=== PATIENT | female | born 2005 | race Caucasian/White ===

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

== ENCOUNTER 2024-01-12 16:38 | Outpatient (CLI) | payer OTHER, SELFPAY | END 2024-01-12 23:59 | LOC: LAB.DROPOF 16:39 | PROVIDERS: PCP Obstetrics & Gynecology; Visit Provider Obstetrics & Gynecology | DX: O26.893 Other specified pregnancy related conditions, third trimester (principal); Z3A.36 36 weeks gestation of pregnancy | CPT/HCPCS: 86403 ==

== ENCOUNTER 2024-01-30 12:29 | Inpatient (IN) | payer OTHER, SELFPAY ==
[2024-01-30 12:45] VITALS: BMI 31.9
[2024-01-30 12:50] VITALS: BP 116/59; PULSE 79; RESP 18; TEMP 36.8; O2SAT 98; BMI 31.9
[2024-01-30 14:30] LABS: Basophils # 0.1 K/mm3 (0-0.2); Basophils % 0.6 % (0.1-2.0); Eosinophils % 0.3 % (0.1-12.0); Hematocrit 36.1 % (37.0-47.0); Hemoglobin 11.6 g/dL (12.2-16.2); Lymphocytes # 1.7 K/mm3 (0.7-4.5); Lymphocytes % 14.6 % (10-50); Mean Corpuscular HGB Conc 32.2 g/dL (31.8-35.4); Mean Corpuscular Hemoglobin 29.9 pg (27.0-31.2); Mean Corpuscular Volume 92.9 fl (81-99); Mean Platelet Volume 8.1 fl (7.4-10.4); Monocytes # 0.8 K/mm3 (0.1-1.0); Monocytes % 6.8 % (1.7-9.3); Neutrophils # 9.1 K/mm3 (1.8-7.8); Neutrophils % 77.6 % (37.0-80.0); Platelet Count 359 K/mm3 (142-424); Red Blood Count 3.88 M/mm3 (4.20-5.40); Red Cell Distribution Width 14.3 % (11.5-17.5); White Blood Count 11.7 K/mm3 (4.5-13.0)
[2024-01-30] MEDS: miSOPROStol 100MCG TABLET 50 MCG PO ×2 (14:32→20:45)
[2024-01-30 15:34] LABS: Microscopic, Urine URINE MICROSCOPIC (MICROSCOPIC)
[2024-01-30 15:43] LABS: Appearance,Urine CLEAR (Clear); Blood, Urine Negative (Negative); Color,Urine DARK YELLOW (Yellow); Glucose,Urine (UA) TRACE (Negative); Ketones,Urine TRACE (Negative); Leukocyte Esterase,Urine 2+ (Negative); Nitrate,Urine Negative (Negative); PH,Urine 6.5 (5.0-8.5); Protein,Urine 1+ (Negative); Specific Gravity, Urine 1.025 (1.005-1.030)
[2024-01-30 15:50] LABS: Bilirubin,Urine 1+ (Negative)
[2024-01-30 15:56] LABS: Benzodiazepines Screen,Urine Negative ng/ml (<200)
[2024-01-30 15:57] LABS: Amphetamine/Metha Screen,Urine Negative ng/ml (<1000); Barbiturates Screen,Urine Negative ng/ml (<200)
[2024-01-30 15:58] LABS: Cannabinoid Screen,Urine Negative ng/ml (<50); Cocaine Screen,Urine Negative ng/ml (<300)
[2024-01-30 15:59] LABS: Methadone Screen,Urine Negative ng/ml (<300)
[2024-01-30 16:00] LABS: Opiate Screen,Urine Negative ng/ml (<300); Phencyclidine Screen,Urine Negative ng/ml (<25)
[2024-01-30 16:45] LABS: Bacteria,Urine 3+ /lpf; RBC,Urine Occasional #/hpf (0-3)
[2024-01-30 19:50] VITALS: BP 116/74; PULSE 97; RESP 17; TEMP 37.2; O2SAT 97
[2024-01-31] MEDS: miSOPROStol 100MCG TABLET 50 MCG PO (02:43)
[2024-01-31] MEDS: SODIUM CHLORIDE 0.9% 25ML BAG 25 ML IV (04:26)
[2024-01-31] MEDS: PROMETHAZINE HCL 25MG/ML 1ML VIAL 12.5 MG IV (04:26)
[2024-01-31] MEDS: LACTATED RINGERS 1000ML 1,000 ML 250 ML IV (08:00)
--- NOTE | 2024-01-31 08:46 | P.HP_ITS ---
OB - H&P: HPI Antepartum History of Present Illness Chief complaint: Elective induction of labor History of present illness: Ms Nancy García is a 18 yo at 39w0d who presents to [facility] Labor and Delivery for scheduled elective induction of labor. She has had good care. Baby is active. GBS negative. History of Present Criteria for establishing EDC:: LMP confirmed by 2nd trimester US care: good care Ultrasounds: normal mid trimester US Obstetrical complications: none Medical complications: none Labs Blood type: A (+) positive Rubella: immune RPR/VDRL: nonreactive GBS status: negative HBsAG: negative [facility] Disclaimer: The information contained in this section may have been updated after the patient was seen, as this information can be updated by other users. Medical History (Updated 01/31/24 @ 08:50 by Beth Bazan DO) Encounter for elective induction of labor with 39 completed weeks gestation Heartburn during Vaginal bleeding in History of maternal chlamydia infection, currently Surgical History No significant past surgical history Family History Other No significant family history Social History Smoking Status: Never smoker alcohol intake: never substance use type: denies use current occupational status: employed Travel in the last 8 weeks: None Review of Systems Review of Systems Review of systems:: pertinent systems reviewed and negative unless documented below Meds Home Medications and Allergies Home Medications Medication Instructions Recorded Confirmed Type vits no.126-ferrous fum 1 tab PO DAILY 09/08/23 01/30/24 History 28 mg iron-folic acid 800 mcg tablet (Classic ) New Prescriptions to Start Prescriptions: Allergies Allergy/AdvReac Type Severity Reaction Status Date / Time No Known Allergies Allergy Verified 01/26/24 09:37 OB - H&P: Exam Physical Exam Vital signs: Temp Pulse Resp BP Pulse Ox O2 Del Method 98.9 F 97 H 17 116/74 97 Room Air 01/30/24 19:50 01/30/24 19:50 01/30/24 19:50 01/30/24 19:50 01/30/24 19:50 01/30/24 12:50 Constitutional no acute distress and cooperative Routine HEENT Exam Head: Present normocephalic and atraumatic Eye: Absent conjunctivae pink ENT: Present mucous membranes moist Routine Neck Exam Present full ROM Routine Respiratory Exam Present CTA bilaterally and normal respiratory effort Routine Cardiovascular Exam Present RRR Routine Abdominal Exam Present soft (Gravid); Absent tenderness Routine Rectal Exam Patient deferred: visual exam Routine Exam External: Present normal urethra appearance; Absent erythema, tenderness, lesions or lacerations Routine Extremities Exam Absent edema or calf tenderness Routine Neurological Exam Present alert, moving all extremities and normal speech Routine Psychiatric Exam Present normal affect and cooperative Detailed Labor and Delivery Exam Dilation (cm): 3 Effacement (%): 70 Cervix position: mid station: -2 Consistency: soft Membranes: artificially ruptured (0752) Amniotic fluid: clear Baseline heart rate: 130 monitor accelerations: Present monitor decelerations: None terminal operations supervisor variability: Moderate (11-25) Contraction frequency (min): 3 Tachysystole: No OB - Results Labs Labs: Short CBC 01/30/24 Range/Units 14:00 WBC 11.7 (4.5-13.0) K/mm3 Hgb 11.6 L (12.2-16.2) g/dL Hct 36.1 L (37.0-47.0) % Plt Count 359 (142-424) K/mm3 Urine 01/30/24 Range/Units 12:45 Urine Color Dark yellow (Yellow) Urine Appearance Clear (Clear) Urine pH 6.5 (5.0-8.5) Ur Specific [place] 1.025 (1.005-1.030) Urine Protein 1+ (Negative) Urine Glucose (UA) Trace (Negative) OB - A/P Antepartum (1) with 39 completed weeks gestation: Status: Acute (2) Encounter for elective induction of labor: Status: Acute (3) Heartburn during : Status: Acute (4) History of maternal chlamydia infection, currently : Status: Acute Additional Plan Planning to breastfeed?: Yes Plan: induction Additional Information:: Admit to [facility] L&D for scheduled elective induction of labor Induction of labor with Cytotec followed by Pitocin GBS negative Close monitoring
--- NOTE | 2024-01-31 08:48 | P.PNANES_ITS ---
[facility] Disclaimer: The information contained in this section may have been updated after the patient was seen, as this information can be updated by other users. Medical History Heartburn during Vaginal bleeding in s/p intercourse History of maternal chlamydia infection, currently Surgical History No significant past surgical history Family History Other No significant family history Social History Smoking Status: Never smoker alcohol intake: never substance use type: denies use current occupational status: employed Travel in the last 8 weeks: None [facility] Anesthesia Checklist Patient Identification Patient Identification: Arm Band and Verbal (Name & ) Structural Data Admitted From: Inpatient ([id number]) Planned Operative Procedure/s: Labor epidural Consent for Planned Operative Procedure(s) Verified: Yes Verified Documents: Surgical Consent and History and Physical NPO Status Verified Time NPO: 08:00 Chart Verification Results Verified: CBC and BMP Additional verifications Patient : Yes (39 wk IUP for labor induction) Anesthesia Reactions: No Cardiovascular Assessment Heart Sounds: S1 & S2 Pulse Rhythm: Irregular Peripheral Edema: No Airway Assessment Mallampati Score:: Class II C-Spine Mobility Assessed: Yes (FROM) TMJ Mobility Assessed: Yes Dentition: Good Dentition (Nothing loose per pt.) Neurological Assessment Level of Consciousness: Awake, Alert, Appropriate and Follows Commands Hx Seizures: No Numbness or tingling in extremities: No Anesthesia Plan Anesthesia Risk discussed: Yes Anesthesia Plan: Verified ASA Class: II Anesthesia Type: Epidural
--- NOTE | 2024-01-31 08:49 | P.PCN_ITS ---
[facility] Procedure Note Date: 01/31/24 Time: 08:25 Procedure Note:: Labor Epidural Position: Sitting Prep:Betadine x3 Level: L3-4 Needle: Touhy 19g VISHNU: to air @ 6cm Heme: NEGATIVE; CSF: NEGATIVE; Parasthesia: NEGATIVE Test Dose: NEGATIVE w/5mL Lido 1.5% w/epi 1:200,000 Catheter: secured 16cm @ skin Bolus: Ropivicaine 0.2% x 10mL + Fentanyl 50mcg SUPERVISOR TELEVISION CHASSIS REPAIR: Ropivicaine 0.2% w/Fentanyl 2mcg/mL @ 12 mL/hr Tolerated well
[2024-01-31] MEDS: OXYTOCIN/RINGERS LACTATE 30 UNITS/500 ML BAG IV (10:25)
[2024-01-31] MEDS: DEXTROSE 5%-LACTATED RINGERS 1,000 ML 125 ML IV (10:26)
[2024-01-31] MEDS: OXYTOCIN/RINGERS LACTATE 30 UNITS/500 ML BAG 40 UNITS IV (12:42)
--- NOTE | 2024-01-31 13:00 | EXP.DN ---
Delivery Note Delivery Date:: 01/31/24 Delivery Time:: 12:41 Anesthesia Type: Epidural Was labor medically induced?: No Induction method: per misoprostol protocol Gestational age (weeks): 39 delivered prior to 39 weeks?: No Gender: Male at 1 minute: 8 at 5 minutes: 9 LAC or MLE?: LAC Delivery Procedure:: Mom complete with epidural. Pushed for approximately 10 minutes. Head delivered spontaneously over intact perineum in ANNALEE position. Body cord delivered through. Anterior shoulder delivered with gentle downward pressure. Posterior shoulder and remainder of body delivered spontaneously. Baby placed on maternal abdomen, mouth and nares bulb suctioned, warmed/dried and stimulated. Delayed cord clamping was performed for 60 seconds. Cord was clamped and cut. Cord blood was obtained. Placenta delivered spontaneously and intact. Bilateral vaginal wall lacerations and left labial laceration repaired with 3-0 Vicryl. Hemostasis noted. Mom and baby were skin to skin and doing well after delivery. Live male baby (baby's name is Rahul) APGARs 8 (1 min), 9 (5 min) EBL 350 mL Laceration:: vaginal Placental Delivery Description: Spontaneous
[2024-01-31] MEDS: BENZOCAINE-MENTHOL SPRAY 56GM CAN TP (14:04)
[2024-01-31] MEDS: WITCH HAZEL 40 PADS/BOX 1 EACH TP (14:05)
[2024-01-31] MEDS: IBUPROFEN 400 MG TABLET 800 MG PO (14:05)
[2024-01-31] MEDS: ACETAMINOPHEN 500MG TAB 1000 MG PO (14:06)
[2024-01-31 19:50] VITALS: BP 118/72; PULSE 58; RESP 16; TEMP 36.9
[2024-02-01 04:00] VITALS: BP 119/66; PULSE 76; RESP 17; TEMP 36.8; O2SAT 98
[2024-02-01 07:04] LABS: Basophils % 0.3 % (0.1-2.0); Eosinophils # 0.1 K/mm3 (0.0-0.4); Eosinophils % 0.6 % (0.1-12.0); Hematocrit 32.9 % (37.0-47.0); Hemoglobin 10.7 g/dL (12.2-16.2); Lymphocytes # 2.5 K/mm3 (0.7-4.5); Lymphocytes % 15.4 % (10-50); Mean Corpuscular HGB Conc 32.5 g/dL (31.8-35.4); Mean Corpuscular Volume 92.4 fl (81-99); Mean Platelet Volume 8.4 fl (7.4-10.4); Monocytes # 0.9 K/mm3 (0.1-1.0); Monocytes % 5.5 % (1.7-9.3); Neutrophils # 12.5 K/mm3 (1.8-7.8); Neutrophils % 78.2 % (37.0-80.0); Platelet Count 375 K/mm3 (142-424); Red Blood Count 3.56 M/mm3 (4.20-5.40); Red Cell Distribution Width 14.2 % (11.5-17.5)
[2024-02-01 07:09] LABS: MANUAL DIFFERENTIAL MANUAL DIFFERENTIAL (MANUAL DIFF)
[2024-02-01 07:28] VITALS: BP 135/72; PULSE 79; RESP 18; TEMP 36.9; O2SAT 98
[2024-02-01] MEDS: SENNA 8.6MG TABLET 8.59999999999999964 MG PO (07:32)
[2024-02-01] MEDS: ACETAMINOPHEN 500MG TAB 1000 MG PO ×2 (07:32→22:22)
[2024-02-01] MEDS: IBUPROFEN 400 MG TABLET 800 MG PO ×2 (07:32→22:22)
[2024-02-01 08:18] LABS: HIV Screen 4th Generation wRfx Non Reactive (Non Reactive)
[2024-02-01 08:24] LABS: Lymphocytes % 16 % (10-50); Monocytes % 2 % (2-9); Neutrophils % 82 % (42-76); Total Cells Counted 100
[2024-02-01 08:25] LABS: Platelet Estimate Normal; RBC Morphology Normal
[2024-02-01 09:20] LABS: Hepatitis B Surface Antigen Negative (Negative)
--- NOTE | 2024-02-01 10:00 | P.PN_ITS ---
Subjective *Date: 02/01/24 *Time: 10:00 Interval history: She is 1 day post from a vaginal delivery. She is doing very well. Her lochia is normal. She is bottlefeeding. She denies any depression. Blood counts are normal. Medical Exam Vital signs and Labs for Last 24 Hours: Vital Signs Temp Pulse Pulse Resp BP Pulse Ox O2 Del Method 02/01/24 07:28 98.4 F 79 18 135/72 98 Room Air 02/01/24 04:00 98.3 F 76 17 119/66 98 Room Air 01/31/24 19:50 98.4 F 58 L 16 118/72 Laboratory Results - last 24 hr 01/30/24 14:00: Hep Bs Antigen Negative, HIV 1&2 Ag/Ab, 4th Gen Non reactive 02/01/24 06:20: WBC 16.0 H D, RBC 3.56 L, Hgb 10.7 L, Hct 32.9 L, MCV 92.4, MCH 30.0, MCHC 32.5, RDW 14.2, Plt Count 375, MPV 8.4, Neut % (Auto) 78.2, Lymph % (Auto) 15.4, [place] % (Auto) 5.5, Eos % (Auto) 0.6, Baso % (Auto) 0.3, Neut # (Auto) 12.5 H, Lymph # (Auto) 2.5, [place] # (Auto) 0.9, Eos # (Auto) 0.1, Baso # (Auto) 0.0, Total Counted 100, Neutrophils % (Manual) 82 H, Lymphocytes % (Manual) 16, Monocytes % (Manual) 2, Platelet Estimate Normal, RBC Morphology Normal I & O for Labs for Last 24 Hours: Intake & Output 01/29/24 01/30/24 01/31/24 02/01/24 11:59 11:59 11:59 11:59 Weight 198 lb Microbiology Reports for the Last 24 Hours: Microbiology 01/30/24 12:45 Urine,Clean Catch Urine Culture - Final Head: Present normocephalic ENT: Present normal exam Neck: Present normal inspection Respiratory: Present normal respiratory effort; Absent accessory muscle use Rectal (female): Present deferred (female): Present deferred Skin: Present intact Assessment and Plan *Assessment and plan (1) Normal delivery at term: Status: Acute Category: Medical Code(s): O80 - Encounter for full-term uncomplicated delivery Plan She is doing very well today. She is 24 hours postdelivery. We will send her home tomorrow.
[2024-02-01 13:09] LABS: Rapid Plasma Reagin Ab Titer Non Reactive titer (NonRea<1:1)
[2024-02-01 15:56] LABS: Hepatitis C Antibody Non Reactive
[2024-02-01] MEDS: WITCH HAZEL 40 PADS/BOX 1 EACH TP (17:58)
[2024-02-01] MEDS: BENZOCAINE-MENTHOL SPRAY 56GM CAN TP (17:59)
--- NOTE | 2024-02-02 11:07 | EXP.DC.SUM ---
General Admission date:: 01/30/24 Discharge date: 02/02/24 HPI HPI HPI: Chief complaint: Elective induction of labor History of present illness: Ms Nancy García is a 18 yo at 39w0d who presents to [facility] Labor and Delivery for scheduled elective induction of labor. She has had good care. Baby is active. GBS negative. History of Present Criteria for establishing EDC:: LMP confirmed by 2nd trimester US care: good care Ultrasounds: normal mid trimester US Obstetrical complications: none Medical complications: none Labs Blood type: A (+) positive Rubella: immune RPR/VDRL: nonreactive GBS status: negative HBsAG: negative Hospital Course Hospital Course Hospital Course: Nancy García is a 18-year-old G1, P1 day #1 from a normal spontaneous vaginal delivery with a first-degree laceration. She had a male infant that weighed 6 pounds 11 ounces with a length of 18-1/2 inches on 01/31/2024 at 1241. The Apgars were 8 and 9. Her EBL was 350. She is bottlefeeding. She denies any complications. She was rubella immune and GBS negative. Rh was positive. Patient reports she is ambulating, voiding, and tolerating p.o. without difficulty or dysuria. She desires discharge home. Routine discharge instructions to include counseling on blues and depression were reviewed with the patient in detail and she voiced understanding. The patient will be scheduled to follow-up with Dr. Bazan in 1 to 2 weeks for routine visit Exam Data for Last 24 hours Vital signs and Labs for Last 24 Hours: Temp Pulse Resp BP Pulse Ox O2 Del Method 98.4 F 79 18 135/72 98 Room Air 02/01/24 07:28 02/01/24 07:28 02/01/24 07:28 02/01/24 07:28 02/01/24 07:28 02/01/24 07:28 Laboratory Results - last 24 hr 01/30/24 14:00: RPR Titer Non reactive, Hepatitis C Antibody Non reactive I & O for Last 24 hours: Intake & Output 01/30/24 01/31/24 02/01/24 02/02/24 23:59 23:59 23:59 23:59 Weight 198 lb Microbiology Reports for the Last 24 Hours: Microbiology 01/30/24 12:45 Urine,Clean Catch Urine Culture - Final Narrative: General: patient is alert oriented in no acute distress and responds appropriately to questions. Appears to be in minimal pain. Sitting up in the chair and doing well HEENT: NCAT, EOMI, moist mucous membranes, neck supple with full ROM Cardiovascular: RRR +S1/S2, no murmurs or rubs Pulmonary: Clear to auscultation bilaterally, nonlabored breathing, symmetric chest rise Abdominal: Fundus below the umbilicus, firm, and tenderness appropriate for the period. Extremities: trace edema, no tenderness or cyanosis noted Skin: Normal turgor, intact, warm. Negative for erythema, pallor, petechia, or lesions Neurologic: Negative for sensory or motor deficit Psychiatric: Normal affect, normal thought process, good judgment and insight, no depression or anxious mood appreciated. Results Data Completed and Pending Labs on day of discharge: Labs from last 24 hours 01/30/24 14:00 RPR Titer Non reactive Hepatitis C Antibody Non reactive DS: Diagnosis Discharge Diagnosis (1) Normal delivery at term: Status: Acute Code(s): O80 - Encounter for full-term uncomplicated delivery Problem details: Routine discharge instructions reviewed in detail Appropriate hemoglobin drop with discharge hemoglobin at 10.7 and normocytic Patient desires discharge home Follow-up with Dr. Hortensia Mariee Home Medications and Allergies Home Medications Medication Instructions Recorded Confirmed Type vits no.126-ferrous fum 1 tab PO DAILY 09/08/23 01/30/24 History 28 mg iron-folic acid 800 mcg tablet (Classic ) acetaminophen 500 mg tablet 500 mg PO Q6H PRN fever #30 tabs 02/02/24 Rx ferrous sulfate 325 mg (65 mg 325 mg PO DAILY #30 tabs 02/02/24 Rx iron) tablet,delayed release ibuprofen 800 mg tablet 800 mg PO Q8H PRN pain #60 tabs 02/02/24 Rx sennosides 8.6 mg tablet (Senna 8.6 mg PO BIDP PRN Constipation 02/02/24 Rx Lax) #60 tabs New Prescriptions to Start Prescriptions: acetaminophen Meera Osborne ferrous sulfate Meera Osborne ibuprofen Meera Osborne sennosides [Senna Lax] Meera Osborne Allergies Allergy/AdvReac Type Severity Reaction Status Date / Time No Known Allergies Allergy Verified 01/26/24 09:37 Discharge Plan Disposition Patient Disposition: Home, Self-Care Condition: Good Discharge Order Discharge Orders: Discharge Order (Routine); Ordered 02/02/24 Ordered By: Meera Osborne Follow up Plan Follow up with: Beth Bazan DO [Staff Physician] - 02/14/24 1:00 pm Prescriptions/Medication Reconciliation: New ibuprofen 800 mg tablet 800 mg PO Q8H PRN (Reason: pain) Qty: 60 2RF acetaminophen 500 mg tablet 500 mg PO Q6H PRN (Reason: fever) Qty: 30 3RF ferrous sulfate 325 mg (65 mg iron) tablet,delayed release (DR/EC) 325 mg PO DAILY Qty: 30 3RF sennosides [Senna Lax] 8.6 mg Tablet 8.6 mg PO BIDP PRN (Reason: Constipation) Qty: 60 2RF Continued Classic 28 mg iron- 800 mcg tablet 1 tab PO DAILY Problem Reconciliation Problems Reviewed?: Yes Patient Discharge Instructions ACTIVITY: Continue current activity DIET: regular diet Additional Instructions: Congratulations on the delivery of your sweet baby boy. 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 Discharge: -Take 800 mg Ibuprofen every 8 hours as needed for pain. You can also take 500-1000 mg of Tylenol in between doses, every 6-8 hours. -Colace can be taken 1-2 times per day as you need to soften your stool. Make sure to drink at least 8 cups of water per day. -Iron supplements can make you constipated. You can take iron tablets every other day if constipation is too bad. -Nothing in the vagina for 6 weeks - no sex, douching, tampons. No tub baths -Do not lift greater than 15 pounds for 6 weeks, this is the equivalent of 2 gallons of milk. -Reasons to return to L&D or call On-Call doctor - fever (greater than 100.4) - heavy vaginal bleeding (soaking through 1 pad in less than 2 hours or passing clots that are egg sized) - vaginal discharge (malodorous and/or purulent) - severe headaches, leg tenderness/edema, or any other symptoms that warrant immediate medical attention. depression/blues - Normal to feel anxious/overwhelmed for first 2 weeks - Talk to your doctor if: anxiety lasts over 2 weeks, trouble bonding with baby, withdrawing from other family members, thoughts of harming yourself or others Meera Osborne, [facility] [phone] *Nothing in the Vagina for 6 weeks* *No strenuous activity* *No heavy lifting* *No tub baths until okay's by MD* Patient Instructions: Depression, Hemorrhage, DI for Labor and Delivery, Vaginal , DI for Pre-eclampsia, [facility] Post Discharge Instructions Providers Primary Care Provider: Provider,Referral Admit Provider: Beth Bazan Attending Provider: Beth Bazan
== END 2024-02-02 12:38 | disposition home or self-care (01) | DRG 807 ==
PROVIDERS: Admitting Provider Obstetrics & Gynecology; Visit Provider Obstetrics & Gynecology
DX: O69.89X0 Labor and delivery complicated by other cord complications, not applicable or unspecified (principal); Z37.0 Single live birth; Z3A.39 39 weeks gestation of pregnancy; O70.0 First degree perineal laceration during delivery
CPT/HCPCS: 59409; 59025; 80307; 81001; 85007; 85025; 86593; 86703; 86850; 87086; 87340; 87380; 94761; C1758; G0283; G0432

== ENCOUNTER 2024-02-04 22:03 | Emergency (ER) | payer OTHER, SELFPAY ==
[2024-02-04 22:06] VITALS: BP 116/91; PULSE 91; RESP 18; TEMP 36.8; O2SAT 98; BMI 30.3
--- NOTE | 2024-02-04 23:19 | ED_ITS ---
Discharge Plan Disposition Patient Disposition: Home, Self-Care Condition: Good Prescriptions Prescriptions: New dicloxacillin 500 mg capsule 500 mg PO Q6H 10 Days Qty: 40 0RF No Action Classic 28 mg iron- 800 mcg tablet 1 tab PO DAILY ibuprofen 800 mg tablet 800 mg PO Q8H PRN (Reason: pain) Qty: 60 2RF acetaminophen 500 mg tablet 500 mg PO Q6H PRN (Reason: fever) Qty: 30 3RF ferrous sulfate 325 mg (65 mg iron) tablet,delayed release (DR/EC) 325 mg PO DAILY Qty: 30 3RF sennosides [Senna Lax] 8.6 mg Tablet 8.6 mg PO BIDP PRN (Reason: Constipation) Qty: 60 2RF Referrals Follow up/Referrals: Provider,Referral, MD [Primary Care Provider] - See instructions Activity Restrictions/Add. Instructions Additional Instructions/Restrictions: You were evaluated in the ER. You are appropriate for discharge at this time. Apply warm compresses to the left breast multiple times per day. Also massage the left breast to help with any clogging. Continue pumping/breast-feeding regularly. Take the prescribed antibiotics as directed, do not skip doses, do not stop taking them early. Follow-up with OB. Also follow-up with your primary care physician in 2 to 3 days for reevaluation. Return to the ER with new, worsening, or otherwise concerning symptoms. Clinical Impressions Clinical Impression: Mastitis, Breast pain, left Discharge ED Provider: Jovany Canada General Adult HPI General Chief complaint: PAIN Stated complaint: Knot under Left and right arm Time Seen by Provider: 02/04/24 23:10 Mode of Arrival: Ambulatory Source of Information: Patient Limitations: No Limitations Description of Symptoms (Recalled from ER Triage Doc. by RN): Pt presents with right breast enderness as well as tender knot in her axillary area. Pt states she had a vaginal 4 days ago, , has been pumping every 2hrs noticed a decrease in production on the right side. Pt said she also has a small knot in left axillary regional as well. Pt first delivery and first time breast feeding. History of Present Illness HPI narrative: 18-year-old female presents to the ER with concerns of left breast tenderness and tenderness in the left axilla. Patient had vaginal delivery 4 days ago. She is breast-feeding and has been pumping every 2 hours. She has had decreased production out of the left breast. Patient states she noticed that earlier today. This is patient's first child and first time breast-feeding. She states she has not been having fevers. No other concerns or complications at this time. Patient is not an IV drug user, no history of MRSA. Related Data Home Medications Medication Instructions Recorded Confirmed vits no.[id number]-ferrous fum 1 tab PO DAILY 09/08/23 01/30/24 28 mg iron-folic acid 800 mcg tablet (Classic ) Previous Rx's Medication Instructions Recorded acetaminophen 500 mg tablet 500 mg PO Q6H PRN fever #30 tabs 02/02/24 ferrous sulfate 325 mg (65 mg 325 mg PO DAILY #30 tabs 02/02/24 iron) tablet,delayed release ibuprofen 800 mg tablet 800 mg PO Q8H PRN pain #60 tabs 02/02/24 sennosides 8.6 mg tablet (Senna 8.6 mg PO BIDP PRN Constipation 02/02/24 Lax) #60 tabs dicloxacillin 500 mg capsule 500 mg PO Q6H 10 days #40 caps 02/04/24 Allergies Allergy/AdvReac Type Severity Reaction Status Date / Time No Known Allergies Allergy Verified 01/26/24 09:37 [facility] Disclaimer: The information contained in this section may have been updated after the vivien ent was seen, as this information can be updated by other users. Medical History (Updated 02/04/24 @ 23:16 by Jovany Canada MD) Encounter for elective induction of labor with 39 completed weeks gestation Heartburn during Vaginal bleeding in History of maternal chlamydia infection, currently Surgical History No significant past surgical history Family History Other No significant family history Social History (Updated 01/31/24 @ 08:49 by Aby Matute CRNA) Smoking Status: Never smoker alcohol intake: never substance use type: denies use current occupational status: employed Travel in the last 8 weeks: None ROS Obtained: Yes All systems reviewed & no additional complaints except as documented Constitutional Constitutional: Denies chills, Denies fever(s), Denies headache(s) and Denies weakness Eyes Eyes: Denies change in vision ENT Ears, Nose, Mouth, and Throat: Denies dizziness, Denies headache(s), Denies nasal congestion and Denies sore throat Cardiovascular Cardiovascular: Denies chest pain, Denies dyspnea and Denies leg edema Respiratory Respiratory: Denies cough and Denies dyspnea Gastrointestinal Gastrointestingal: Denies constipation, diarrhea, nausea or vomiting Genitourinary Female Genitourinary: Denies dysuria Musculoskeletal Musculoskeletal: Denies arthralgias, Denies myalgias, Denies numbness and Denies tingling Integumentary/Breasts Skin/Breast: Denies change in pigmentation, Reports breast pain and Reports breast swelling Comments: Left breast pain, swelling, also noticed knot in the left axilla Neurologic Neurologic: Denies dizziness, Denies headache(s), Denies numbness, Denies tingling and Denies weakness Physical Exam General General appearance: alert and in no apparent distress Head Head exam: atraumatic and normocephalic Eye Eye exam: Present PERRL and EOMI ENT ENT exam: Present mucous membranes moist Neck Neck exam: Present normal inspection and full ROM Chest Chest inspection: Present symmetric chest wall rise Expanded Chest Exam Breast: left: swelling (Left upper, outer quadrant with tenderness. No overlying erythema) and tenderness Respiratory Respiratory exam: Absent respiratory distress or stridor Cardiovascular Cardiovascular exam: Present regular rate and normal rhythm Abdominal Exam Abdominal exam: Present soft; Absent distention or tenderness Extremities Exam Extremities exam: Present full ROM and other (Slight left axillary adenopathy, few slightly enlarged tender nodes.) Neurological Exam Neurological exam: Present alert and oriented X3; Absent motor sensory deficit Psychiatric Psychiatric exam: Present normal affect and normal mood Skin Skin exam: Present warm and dry Medical Decision Making Sudhir Inquiry Pt receiving controlled substance: No Vital Signs: 02/04/24 22:06 02/04/24 23:23 Temperature 98.2 F 98.5 F Temperature Source Oral Oral Pulse Rate 87 Pulse Rate [Left] 91 H Respiratory Rate 18 17 Blood Pressure 120/84 Blood Pressure [Right Arm] 116/91 H Blood Pressure Mean [Right Arm] 99 Blood Pressure Source [Right Arm] Automatic Cuff Blood Pressure Position [Right Arm] Sitting 02 Sat by Pulse Oximetry 98 Oxygen Delivery Method Room Air Room Air Medical Decision Narrative: In summary, this 18year old female presents to the emergency department today with left breast pain, swelling, left armpit knot. On initial evaluation patient is hemodynamically stable, afebrile, tenderness and swelling of the left breast as well as mild adenopathy in the left axilla. Differential diagnosis includes but is not limited to mastitis, clogged milk duct, also considered normal breast changes with milk letdown, considered possibility of abscess but have no findings of this on exam since there is no significant overlying erythema, no fluctuance. I do not believe patient requires any labs or imaging at this time. She will be treated for mastitis. I prescribed dicloxacillin as well as gave recommendations for symptomatic management including warm compresses, pumping and breast-feeding, massage. Patient was given instructions on symptomatic management, follow up instructions, and return precautions for the emergency department. Patient indicated understanding and was discharged in stable condi tion. Critical Care Critical Care Time Critical Care Time: No
[2024-02-04 23:23] VITALS: BP 120/84; PULSE 87; RESP 17; TEMP 36.9; O2SAT 98
== END 2024-02-04 23:23 | disposition home or self-care (01) ==
PROVIDERS: Emergency Provider Emergency Medicine
DX: O91.23 Nonpurulent mastitis associated with lactation
CPT/HCPCS: 99283

== ENCOUNTER 2024-03-03 20:32 | Emergency (ER) | payer OTHER, SELFPAY ==
[2024-03-03 20:34] VITALS: BP 134/80; PULSE 66; RESP 16; TEMP 36.8; O2SAT 95; BMI 27.7
--- NOTE | 2024-03-03 20:44 | HMH.EDGENADL ---
Discharge Plan Disposition Patient Disposition: Home, Self-Care Condition: Good Prescriptions Prescriptions: New ondansetron 4 mg tablet,disintegrating 4 mg PO Q8H PRN (Reason: nausea and vomiting) 4 Days Qty: 12 0RF No Action Classic 28 mg iron- 800 mcg tablet 1 tab PO DAILY dicloxacillin 500 mg capsule 500 mg PO Q6H 10 Days Qty: 40 0RF ibuprofen 800 mg tablet 800 mg PO Q8H PRN (Reason: pain) Qty: 60 2RF acetaminophen 500 mg tablet 500 mg PO Q6H PRN (Reason: fever) Qty: 30 3RF ferrous sulfate 325 mg (65 mg iron) tablet,delayed release (DR/EC) 325 mg PO DAILY Qty: 30 3RF sennosides [Senna Lax] 8.6 mg Tablet 8.6 mg PO BIDP PRN (Reason: Constipation) Qty: 60 2RF Referrals Follow up/Referrals: Provider,Referral, MD [Primary Care Provider] - See instructions Activity Restrictions/Add. Instructions Additional Instructions/Restrictions: You were evaluated in the emergency department today. At this time, your labs are reassuring. It may take several days for diarrhea to resolve. Please technical sales support manager your prescription and take as needed for symptoms. You may take defo-wog-owulxfl antidiarrheals, but these can cause worsening cramping, so use with caution. Eat a bland diet until your symptoms have resolved. Make sure that you are staying orally hydrated. Follow-up closely with your primary care provider. Return to the emergency department for new or worsening symptoms. Clinical Impressions Clinical Impression: Diarrhea Instructions Patient Instructions: DI for Diarrhea and Traveler's Diarrhea -- Adult Discharge ED Provider: Nadja Sullivan General Adult HPI General Chief complaint: Abdominal Pain Stated complaint: Abdominal Pain,Diarrhea Time Seen by Provider: 03/03/24 20:36 History of Present Illness HPI narrative: This patient is a 18-year-old female with a history of uncomplicated spontaneous vaginal delivery 01/30/24 presenting to the emergency department for evaluation with concern for abdominal cramping and diarrhea for approximately 2 days. Bowel movements are loose and watery. She states that she has been going to the bathroom about every 1/2 hour. She denies any fevers, nausea, vomiting, melena, medic easier, abnormal vaginal discharge, urinary symptoms, or other concerns. No history of intra-abdominal issues or prior abdominal surgeries. Related Data Home Medications Medication Instructions Recorded Confirmed vits no.126-ferrous fum 1 tab PO DAILY 09/08/23 02/14/24 28 mg iron-folic acid 800 mcg tablet (Classic ) Previous Rx's Medication Instructions Recorded acetaminophen 500 mg tablet 500 mg PO Q6H PRN fever #30 tabs 02/02/24 ferrous sulfate 325 mg (65 mg 325 mg PO DAILY #30 tabs 02/02/24 iron) tablet,delayed release ibuprofen 800 mg tablet 800 mg PO Q8H PRN pain #60 tabs 02/02/24 sennosides 8.6 mg tablet (Senna 8.6 mg PO BIDP PRN Constipation 02/02/24 Lax) #60 tabs dicloxacillin 500 mg capsule 500 mg PO Q6H 10 days #40 caps 02/04/24 ondansetron 4 mg disintegrating 4 mg PO Q8H PRN nausea and 03/03/24 tablet vomiting 4 days #12 tabs Allergies Allergy/AdvReac Type Severity Reaction Status Date / Time No Known Allergies Allergy Verified 02/14/24 13:20 [facility] Disclaimer: The information contained in this section may have been updated after the patient was seen, as this information can be updated by other users. Medical History Mastitis History of maternal chlamydia infection, currently Surgical History No significant past surgical history Family History Other No significant family history Social History Smoking Status: Unknown if ever smoked alcohol intake: never substance use type: denies use current occupational status: employed Travel in the last 8 weeks: None ROS Obtained: Yes All systems reviewed & no additional complaints except as documented Physical Exam General General appearance: alert and in no apparent distress Head Head exam: atraumatic and normocephalic Eye Eye exam: Present normal appearance, PERRL and EOMI ENT ENT exam: Present normal exam, normal oropharynx, mucous membranes moist and normal external ear exam Neck Neck exam: Present normal inspection, full ROM and trachea midline; Absent tenderness Chest Chest inspection: Present normal inspection and symmetric chest wall rise; Absent tenderness Respiratory Respiratory exam: Present normal lung sounds bilaterally; Absent respiratory distress, wheezes, stridor or accessory muscle use Cardiovascular Cardiovascular exam: Present regular rate and normal rhythm Abdominal Exam Abdominal exam: Present soft; Absent distention, tenderness or guarding Extremities Exam Extremities exam: Present normal inspection, full ROM and normal capillary refill; Absent tenderness or edema Back Exam Back exam: Present normal inspection and full ROM; Absent tenderness Neurological Exam Neurological exam: Present alert, oriented X3, CN II-XII intact and normal gait; Absent motor sensory deficit Psychiatric Psychiatric exam: Present normal affect and normal mood Skin Skin exam: Present warm and dry Medical Decision Making Medical Records Medical records reviewed: Yes I reviewed the patient's medical records. Sudhir Inquiry Pt receiving controlled substance: No Vital Signs: 03/03/24 20:34 03/03/24 21:07 03/03/24 22:45 Temperature 98.3 F 98.3 F Temperature Source Oral Pulse Rate 53 L 42 L Pulse Rate [Left] 66 Respiratory Rate 16 18 14 Blood Pressure 112/68 114/71 Blood Pressure [Right Arm] 134/80 Blood Pressure Mean [Right Arm] 98 02 Sat by Pulse Oximetry 95 96 Oxygen Delivery Method Room Air Room Air Lab Data Lab results reviewed: Yes I reviewed the patient's lab results. Lab Results 03/03/24 20:45: WBC 8.0, RBC 4.02 L, Hgb 11.7 L, Hct 37.6, MCV 93.7, MCH 29.0, MCHC 31.0 L, RDW 13.8, Plt Count 358, MPV 7.9, Neut % (Auto) 58.1, Lymph % (Auto) 28.9, [place] % (Auto) 8.1, Eos % (Auto) 4.2, Baso % (Auto) 0.7, Neut # (Auto) 4.6, Lymph # (Auto) 2.3, [place] # (Auto) 0.7, Eos # (Auto) 0.3, Baso # (Auto) 0.1, Sodium 140, Potassium 3.7, Chloride 107, Carbon Dioxide 26, Anion Gap 10.7, BUN 9, Creatinine 0.90, Estimated Creat Clear 124, Estimated GFR 81, Est GFR ( Amer) 98, Glucose 97, Calcium 9.0, Phosphorus 4.4, Magnesium 1.8, Total Bilirubin 0.2, AST 54 H, ALT 52, Alkaline Phosphatase 103, Total Protein 7.0, Albumin 4.0, Globulin 3.0, Albumin/Globulin Ratio 1.3, Lipase 67 03/03/24 21:44: Urine Color Yellow, Urine Appearance Clear, Urine pH 6.5, Ur Specific [place] 1.025, Urine Protein Negative, Urine Glucose (UA) Negative, Urine Ketones Negative, Urine Blood Trace-i, Urine Nitrate Negative, Urine Bilirubin Negative, Urine Urobilinogen 0.2, Ur Leukocyte Esterase Negative, Urine RBC 5-10, Urine WBC Occasional, Ur Squamous Epith Cells Occasional, Urine Bacteria Trace 03/03/24 20:45 03/03/24 20:45 Orders (Tests/Meds): ED MEDICATIONS Discontinued Medications Generic Name Dose Route Start Last Admin Trade Name Freq PRN Reason Stop Dose Admin Dicyclomine HCl 20 mg 03/03/24 20:43 03/03/24 21:03 Dicyclomine 10mg Capsule PO 03/03/24 20:44 20 mg ONCE ONE Administration Lactated Ringer's 1,000 mls @ 999 mls/hr 03/03/24 20:43 03/03/24 21:02 Lactated Ringer's 1000 Ml Bag IV 03/03/24 21:43 999 mls/hr .Q1H1M ONE Administration Ondansetron HCl 4 mg 03/03/24 20:43 03/03/24 21:02 Ondansetron 4mg/2ml Vial IV 03/03/24 20:44 4 mg ONCE ONE Administration ORDERS Category Date Time Status Complete Blood Count Auto Diff Stat Lab 03/03/24 20:45 Completed Comprehensive Metabolic Panel Stat Lab 03/03/24 20:45 Completed Lipase Stat Lab 03/03/24 20:45 Completed Magnesium Stat Lab 03/03/24 20:45 Completed Phosphorous Stat Lab 03/03/24 20:45 Completed UA [Urinalysis and Microscopic] Stat Lab 03/03/24 21:44 Completed Medical Decision Narrative: In summary, this patient is a 18-year-old female presenting to the Emergency Department for evaluation of lower abdominal cramping and diarrhea with bowel movements approximately every 30 minutes for the last 48 hours. Differential diagnoses considered include but are not limited to dehydration, electrolyte derangements, viral gastroenteritis, bacterial enteritis, colitis. Ruling out the most morbid conditions drove assessment. On exam, the patient is very well-appearing with benign abdominal exam. No focal tenderness or localizable pain. Given the frequency of her bowel movements, will obtain basic labs including CBC, CMP, magnesium. Will also plan to obtain urine specimen as well as diarrhea panel. Patient was given a bolus of IV fluids as well as oral Bentyl and IV Zofran for symptomatic improvement. I considered obtaining abdominal imaging, however given no localizable abdominal pain or significant tenderness, I do not feel this is indicated the patient is unlikely to have acute surgical intra-abdominal pathology. On reassessment, the patient is resting comfortably. Exam remains reassuring. Vitals and labs are reassuring. Patient was unable provide a stool sample. Ultimately I feel that she has infectious enteritis. She is seen to be appropriate for discharge at this time after reassuring workup and exam with instructions for supportive management. Strict return precautions were given. Critical Care Critical Care Time Critical Care Time: No
[2024-03-03] MEDS: ONDANSETRON 4MG/2ML VIAL 4 MG IV (21:02)
[2024-03-03] MEDS: LACTATED RINGERS 1000ML 1,000 ML 999 ML IV (21:02)
[2024-03-03] MEDS: DICYCLOMINE 10MG CAPSULE 20 MG PO (21:03)
[2024-03-03 21:04] LABS: Chloride 107 mmol/L (98-107); Potassium 3.7 mmoL/L (3.5-5.1); Sodium 140 mmol/L (136-145)
[2024-03-03 21:06] LABS: Alanine Aminotransferase 52 U/L (12-78); Alkaline Phosphatase 103 U/L (38-126); Aspartate Amino Transferase 54 U/L (14-36); Bilirubin,Total 0.2 mg/dl (0.2-1.3); Blood Urea Nitrogen 9 mg/dl (7-17); Creatinine Clearance Estimated 124 mL/min (50-200); Estimated Glomerular Filt Rate 81 ml/min (>60); GFR (African American) 98 ML/MIN (>60)
[2024-03-03 21:07] VITALS: BP 112/68; PULSE 53; RESP 18; O2SAT 96
[2024-03-03 21:07] LABS: Albumin/Globulin Ratio 1.3 (1.1-1.8); Anion Gap 10.7 mEq/L (5-15); Carbon Dioxide 26 mmol/L (22.0-30.0); Glucose 97 mg/dl (74-100); Lipase 67 U/L (23-300); Magnesium 1.8 mg/dl (1.6-2.3); Phosphorous 4.4 mg/dl (2.5-4.5)
[2024-03-03 21:08] LABS: Basophils # 0.1 K/mm3 (0-0.2); Basophils % 0.7 % (0.1-2.0); Eosinophils # 0.3 K/mm3 (0.0-0.4); Eosinophils % 4.2 % (0.1-12.0); Hematocrit 37.6 % (37.0-47.0); Hemoglobin 11.7 g/dL (12.2-16.2); Lymphocytes # 2.3 K/mm3 (0.7-4.5); Lymphocytes % 28.9 % (10-50); Mean Corpuscular Volume 93.7 fl (81-99); Mean Platelet Volume 7.9 fl (7.4-10.4); Monocytes # 0.7 K/mm3 (0.1-1.0); Monocytes % 8.1 % (1.7-9.3); Neutrophils # 4.6 K/mm3 (1.8-7.8); Neutrophils % 58.1 % (37.0-80.0); Platelet Count 358 K/mm3 (142-424); Red Blood Count 4.02 M/mm3 (4.20-5.40); Red Cell Distribution Width 13.8 % (11.5-17.5)
[2024-03-03 21:48] LABS: Microscopic, Urine URINE MICROSCOPIC (MICROSCOPIC)
[2024-03-03 21:49] LABS: Appearance,Urine CLEAR (Clear); Bilirubin,Urine Negative (Negative); Blood, Urine TRACE-I (Negative); Color,Urine YELLOW (Yellow); Glucose,Urine (UA) Negative (Negative); Ketones,Urine Negative (Negative); Leukocyte Esterase,Urine Negative (Negative); Nitrate,Urine Negative (Negative); PH,Urine 6.5 (5.0-8.5); Protein,Urine Negative (Negative); Specific Gravity, Urine 1.025 (1.005-1.030); Urobilinogen,Urine 0.2 EU/dl (0.2)
[2024-03-03 22:08] LABS: Bacteria,Urine Trace /lpf; Squamous Epithelial Cell,Urine Occasional #/hpf (0-5); WBC,Urine Occasional #/hpf (0-3)
[2024-03-03 22:45] VITALS: BP 114/71; PULSE 42; RESP 14; TEMP 36.8
== END 2024-03-03 22:47 | disposition home or self-care (01) ==
PROVIDERS: Emergency Provider Emergency Medicine
DX: R10.819 Abdominal tenderness, unspecified site (principal); R19.7 Diarrhea, unspecified
CPT/HCPCS: 80053; 81001; 83690; 83735; 84100; 85025; 96361; 96374; 99284; J2405; J7120

== ENCOUNTER 2024-09-09 11:25 | Outpatient (CLI) | payer OTHER, SELFPAY ==
[2024-09-09 19:06] LABS: Cholesterol 190 mg/dl (140-200); Triglycerides 60 mg/dl (30-150); VLDL Cholesterol 12 mg/dL (0-40)
[2024-09-09 19:07] LABS: Chol/HDL Ratio 2.6 (1-3.5); HDL Cholesterol 74 mg/dl (40-60)
[2024-09-09 19:18] LABS: Direct LDL Cholesterol 85.97 mg/dL (100-129)
== END 2024-09-09 23:59 | disposition home or self-care (01) ==
LOC: LAB.DROPOF 09-10 12:53
PROVIDERS: PCP Internal Medicine; Visit Provider Internal Medicine
DX: E66.3 Overweight (principal)
CPT/HCPCS: 80061

== ENCOUNTER 2024-09-11 14:28 | Outpatient (CLI) | payer OTHER, SELFPAY ==
--- NOTE | 2024-09-11 14:30 | US_ITS ---
PROCEDURE INFORMATION: Exam: US Left Breast, Complete Exam date and time: 09/11/2024 2:41 PM Age: 19 years old Clinical indication: Inflammation of arm pit. TECHNIQUE: Imaging protocol: Complete ultrasound of all four quadrants of the left breast and the retroareolar regions, including ultrasound of the axilla when performed. COMPARISON: No relevant prior studies available. FINDINGS: ULTRASOUND: Breast ultrasound findings: Sonographic images of the left breast including the retroareolar region, all 4 quadrants and the axilla do not demonstrate any solid or cystic masses. No architectural distortion or acoustical shadowing. No skin thickening or axillary adenopathy. IMPRESSION: 1. No sonographic evidence of malignancy. 2. Continued clinical monitoring of the patient's symptoms is recommended, with repeat imaging if there is any worsening. Further evaluation of a palpable abnormality should be based on clinical grounds regardless of radiographic findings or lack thereof. ASSESSMENT: BI-RADS Category 1: Negative.
== END 2024-09-11 23:59 | disposition home or self-care (01) ==
LOC: RAD 14:28
PROVIDERS: PCP Internal Medicine; Visit Provider Internal Medicine
DX: N64.4 Mastodynia (principal); N61.0 Mastitis without abscess
CPT/HCPCS: 76641

== ENCOUNTER 2024-12-19 13:39 | Outpatient (CLI) | payer OTHER, SELFPAY ==
--- NOTE | 2024-12-19 13:45 | MR_ITS ---
FINAL REPORT CLINICAL HISTORY: Axilla LUMP ON AXILLA THAT ITCHES CAME UP AFTER GIVING IN JANUARY , WENT AWAY IN FEBRUARY AND THEN CAME BACK IN AUGUST 11 ML [facility] COMPARISON: None FINDINGS: Multiplanar MR imaging was obtained of the left shoulder before and after the ministration of contrast. The supraspinatus tendon is intact. The acromioclavicular joint is intact. There is no fluid in the subacromial/subdeltoid bursa. Marker placed over the site of clinical abnormality. Marker resides in the superior axillary fold. There is adjacent nonspecific skin thickening in this region. No discrete mass identified. No definite abnormal enhancement. IMPRESSION: Marker corresponds to skin thickening at the level of a skin fold in the axilla. No discrete mass or abnormal enhancement identified. Reviewed, Interpreted and Dictated by Devonte Inman MD Transcribed by Linda Pichardo Authenticated and [facility]
[2024-12-19] MEDS: GADOTERIDOL INJ 20ML SYRINGE 17 ML IV (14:51)
[2024-12-19] MEDS: SODIUM CHLORIDE 0.9% 10ML SYR (RAD ONLY) 10 ML IV (14:51)
== END 2024-12-19 23:59 | disposition home or self-care (01) ==
LOC: RAD 13:40
PROVIDERS: Visit Provider Obstetrics & Gynecology
DX: R22.32 Localized swelling, mass and lump, left upper limb (principal); N64.4 Mastodynia
CPT/HCPCS: 73223; A9576